=== PATIENT | male | born 1975 | race African-American/Black ===

== ENCOUNTER 2017-12-27 14:40 | Emergency (ER) | payer SELFPAY ==
[2017-12-27 15:29] LABS: Bilirubin Negative (Negative); Blood, Urine Negative (Negative); Clarity CLOUDY (Clear); Glucose, Urine (Dipstick) Negative (Negative); Leukocyte Negative (Negative); Nitrite Negative (Negative); Protein, Urine (Dipstick) Trace mg/dL (Neg-Trace); Specific Gravity, Urine 1.014 (1.002-1.036)
[2017-12-27] MEDS ORDERED: Azithromycin 250 MG TAB ONE (15:31)
[2017-12-27] MEDS ORDERED: cefTRIAXone\\ROCEPHIN 250 MG VIAL ONE (15:31)
[2017-12-29 03:21] LABS: Chlamydia by PCR Not Detected (NotDetected); GC by PCR Not Detected (NotDetected)
== END 2017-12-27 15:51 | disposition home or self-care (01) ==
LOC: ERS 14:40
DX: Z20.2 Contact with and (suspected) exposure to infections with a predominantly sexual mode of transmission (principal); I10 Essential (primary) hypertension; F31.9 Bipolar disorder, unspecified; F20.0 Paranoid schizophrenia; F17.210 Nicotine dependence, cigarettes, uncomplicated
CPT/HCPCS: 81003; 87491; 87591; 96372; J0696

== ENCOUNTER 2019-01-27 18:33 | Emergency (ER) | payer SELFPAY ==
--- NOTE | 2019-01-27 19:25 | RAD ---
2 views left forearm. HISTORY: Blunt or trauma left forearm. AP and lateral views left forearm demonstrates no evidence of fractures, subluxations or bony lesions . IMPRESSION: no evidence of the left forearm fractures.
== END 2019-01-27 19:59 | disposition home or self-care (01) ==
LOC: ERS 18:33
DX: S50.12XA Contusion of left forearm, initial encounter (principal); Y00.XXXA Assault by blunt object, initial encounter

== ENCOUNTER 2023-01-06 16:01 | Emergency (ER) | payer SELFPAY | END 2023-01-06 16:58 | disposition home or self-care (01) | LOC: ERS 16:01 | DX: S31.139D Puncture wound of abdominal wall without foreign body, unspecified quadrant without penetration into peritoneal cavity, subsequent encounter (principal); W34.00XD Accidental discharge from unspecified firearms or gun, subsequent encounter ==